=== PATIENT | female | born 1965 | race Native Hawaiian/Other Pacific Islander ===

== ENCOUNTER 2023-05-06 14:15 | Outpatient (RCR) | payer MEDICAID, SELFPAY | END 2023-07-01 15:16 | disposition home or self-care (01) | PROVIDERS: PCP Family Medicine; Visit Provider Family Medicine | DX: I89.0 Lymphedema, not elsewhere classified (principal); Z51.89 Encounter for other specified aftercare | CPT/HCPCS: 97140; 97165; 97535 ==

== ENCOUNTER 2024-09-25 12:54 | Outpatient (CLI) | payer MEDICAID, SELFPAY | END 2024-09-25 12:55 | disposition home or self-care (01) | LOC: LKVREF 12:55 | PROVIDERS: PCP Family Medicine | DX: L03.116 Cellulitis of left lower limb (principal); B96.89 Other specified bacterial agents as the cause of diseases classified elsewhere | CPT/HCPCS: 87070; 87186 ==

== ENCOUNTER 2024-10-17 13:25 | Outpatient (CLI) | payer MEDICAID, SELFPAY | END 2024-10-17 13:27 | disposition home or self-care (01) | LOC: WOUND 11-13 05:34 | PROVIDERS: PCP Family Medicine; Visit Provider Nurse Practitioner Family | DX: I87.312 Chronic venous hypertension (idiopathic) with ulcer of left lower extremity (principal); Q82.0 Hereditary lymphedema; L97.222 Non-pressure chronic ulcer of left calf with fat layer exposed; E66.01 Morbid (severe) obesity due to excess calories; Z68.44 Body mass index [BMI] 60.0-69.9, adult | CPT/HCPCS: 97602; G0463 ==

== ENCOUNTER 2024-11-03 11:24 | Outpatient (CLI) | payer MEDICAID, SELFPAY | END 2024-11-03 11:25 | disposition home or self-care (01) | LOC: WOUND 11:25 | PROVIDERS: PCP Family Medicine; Visit Provider Nurse Practitioner Family | DX: I87.312 Chronic venous hypertension (idiopathic) with ulcer of left lower extremity (principal); Q82.0 Hereditary lymphedema; L97.222 Non-pressure chronic ulcer of left calf with fat layer exposed | CPT/HCPCS: 97597 ==

== ENCOUNTER 2024-11-14 10:06 | Outpatient (CLI) | payer MEDICAID, SELFPAY | END 2024-11-14 10:07 | disposition home or self-care (01) | PROVIDERS: Visit Provider Family Medicine | DX: I87.312 Chronic venous hypertension (idiopathic) with ulcer of left lower extremity (principal); Q82.0 Hereditary lymphedema; L97.222 Non-pressure chronic ulcer of left calf with fat layer exposed | CPT/HCPCS: 11042; G0463 ==

== ENCOUNTER 2024-11-28 10:54 | Outpatient (CLI) | payer MEDICAID, SELFPAY | END 2024-11-28 10:55 | disposition home or self-care (01) | LOC: WOUND 10:54 | PROVIDERS: Visit Provider Nurse Practitioner Family | DX: I87.302 Chronic venous hypertension (idiopathic) without complications of left lower extremity (principal); Q82.0 Hereditary lymphedema; E66.01 Morbid (severe) obesity due to excess calories; Z68.44 Body mass index [BMI] 60.0-69.9, adult | CPT/HCPCS: G0463 ==

== ENCOUNTER 2025-03-21 14:28 | Outpatient (CLI) | payer MEDICAID, SELFPAY | END 2025-03-21 14:29 | disposition home or self-care (01) | PROVIDERS: Visit Provider Surgery | DX: I89.0 Lymphedema, not elsewhere classified (principal); L97.228 Non-pressure chronic ulcer of left calf with other specified severity | CPT/HCPCS: G0463 ==

== ENCOUNTER 2025-03-28 14:08 | Outpatient (CLI) | payer MEDICAID, SELFPAY | END 2025-03-28 14:09 | disposition home or self-care (01) | LOC: WOUND 14:08 | PROVIDERS: Visit Provider Surgery | DX: I89.0 Lymphedema, not elsewhere classified (principal) | CPT/HCPCS: G0463 ==